=== PATIENT | female | born 1975 | race Caucasian/White ===

== ENCOUNTER 2018-06-07 21:37 | Emergency (ER) | payer MEDICAID ==
[2018-06-07 21:45] VITALS: Ht 160 cm
[2018-06-08 00:54] VITALS: BP 125/74
== END 2018-06-08 00:54 | disposition home or self-care (01) ==
LOC: ED 21:37
DX: H60.92 Unspecified otitis externa, left ear (principal); J02.9 Acute pharyngitis, unspecified; I10 Essential (primary) hypertension; E11.9 Type 2 diabetes mellitus without complications

== ENCOUNTER 2018-07-26 15:46 | Inpatient (IN) | payer MEDICAID ==
[~2018-07-26] VITALS: Ht 160 cm; Wt 103.4 kg
[2018-07-26 15:49] VITALS: Ht 160 cm; Wt 103.4 kg
[2018-07-26 16:55] LABS: microscopic required? NO
[2018-07-26 16:58] LABS: BASOPHIL % 0.9 % (0-2); PLATELET COUNT 236 x10^3mcL (130-400); RED CELL DISTRIBUTION WIDTH 12.9 % (11.5-14.5)
[2018-07-26 17:20] LABS: urine erythrocyte NEGATIVE (NEGATIVE)
[2018-07-26 17:28] LABS: AMPHETAMINE QUAL UR NONE DETECTED (See below)
[2018-07-26 17:32] LABS: CALCIUM 8.6 mg/dL (8.5-10.1); CARBON DIOXIDE 30.8 mmol/L (21-32); CHLORIDE SERUM 98 mmol/L (98-107); CREATININE SERUM 0.5 mg/dL (0.6-1.0); GFR1 > 60 mL/min; GLUCOSE SERUM 306 mg/dL (74-106); POTASSIUM SERUM 3.4 mmol/L (3.5-5.1); SODIUM SERUM 134 mmol/L (136-145)
[2018-07-26 17:45] LABS: ALKALINE PHOSPHATASE 107 U/L (46-116); ALT/SGPT 17 U/L (14-59); AST/SGOT 8 U/L (15-37); BILIRUBIN TOTAL 0.4 mg/dL (0.20-1.00); CHOLESTEROL 172 mg/dL (<200); HDL CHOLESTEROL 44 mg/dL (40-60); LIPASE 143 IU/L (73-393); TOTAL PROTEIN, SERUM 7.2 g/dL (6.4-8.2)
[2018-07-26 17:48] LABS: ALBUMIN 2.8 g/dL (3.4-5.0); AMYLASE 17 U/L (25-115)
[2018-07-26 20:15] VITALS: BP 107/58
[2018-07-26 20:29] LABS: CHOLESTEROL/HDL RATIO 3.9; PHOSPHOROUS 3.1 mg/dL (2.5-4.9)
[2018-07-26 20:35] LABS: T3 TOTAL 0.88 ng/mL
[2018-07-26 20:40] LABS: FREE T4 0.83 ng/dL (0.76-1.46); FREE THYROXINE INDEX 1.9 ug/dL (1.4-4.5); T4(THYROXINE) 5.8 ug/dL (4.7-13.3)
[2018-07-26 21:41] VITALS: BP 107/58
[2018-07-27 06:01] VITALS: BP 107/52
[2018-07-27 06:18] LABS: BASOPHIL % 0.3 % (0-2); PLATELET COUNT 218 x10^3mcL (130-400); RED CELL DISTRIBUTION WIDTH 12.9 % (11.5-14.5)
[2018-07-27 06:49] LABS: CARBON DIOXIDE 24.7 mmol/L (21-32); CHLORIDE SERUM 107 mmol/L (98-107); CREATININE SERUM 0.5 mg/dL (0.6-1.0); GFR1 > 60 mL/min; GLUCOSE SERUM 207 mg/dL (74-106); MAGNESIUM 1.5 mg/dL (1.8-2.4); PHOSPHOROUS 3.4 mg/dL (2.5-4.9); POTASSIUM SERUM 3.4 mmol/L (3.5-5.1); SODIUM SERUM 141 mmol/L (136-145)
[2018-07-27 08:37] VITALS: BP 108/63
[2018-07-27 12:39] VITALS: BP 102/61
[2018-07-27 15:14] VITALS: BP 107/61
[2018-07-27] MEDS ORDERED: METFORMIN HYDR500 M1 PO (16:05)
== END 2018-07-27 16:37 | disposition home or self-care (01) | DRG 48 ==
LOC: ED 15:46 → DU 18:59
PROVIDERS: Emergency Medicine; Internal Medicine
DX: E11.42 Type 2 diabetes mellitus with diabetic polyneuropathy (principal); E43 Unspecified severe protein-calorie malnutrition; D68.69 Other thrombophilia; E11.65 Type 2 diabetes mellitus with hyperglycemia; E83.42 Hypomagnesemia; E66.01 Morbid (severe) obesity due to excess calories; I10 Essential (primary) hypertension; E78.00 Pure hypercholesterolemia, unspecified; E78.1 Pure hyperglyceridemia; F15.21 Other stimulant dependence, in remission; Z79.4 Long term (current) use of insulin; Z71.3 Dietary counseling and surveillance; Z91.14 Patient's other noncompliance with medication regimen; Z68.41 Body mass index [BMI] 40.0-44.9, adult
CPT/HCPCS: 36600; 82962; 83880; 84439; G0480; J1815; J3475; J7030; Q0092